=== PATIENT | female | born 1990 | race Caucasian/White ===

== ENCOUNTER 2021-03-19 01:17 | Emergency (ER) | payer OTHER ==
[~2021-03-19] VITALS: Ht 154.9 cm; Wt 59.0 kg
[2021-03-19 01:33] VITALS: BP 110/61
[2021-03-19] MEDS ORDERED: PREDNISONE50 MG PO (03:28)
[2021-03-19] MEDS ORDERED: PERMETHRIN60 GM TOP (03:28)
== END 2021-03-19 03:30 | disposition home or self-care (01) ==
LOC: M.ERS 01:17
DX: R21 Rash and other nonspecific skin eruption (principal)